=== PATIENT | female | born 1940 | race American Indian/Alaskan Native ===

== ENCOUNTER 2017-06-16 13:46 | Emergency (ER) | payer MEDICARE ==
--- NOTE | 2017-06-16 14:58 | Emergency Department Report ---
Stated Complaint: WEAKNESS AND NAUSEA Time Seen by Provider: 06/16/17 14:52 - HPI History of Present Illness: PT states her power was out. PT states she went to get food before taking her medication. PT states she thinks she passed out. PT is a poor historian - ROS Review of Systems: + weakness - generalized possible syncope - Exam Physical Exam: pt is alert poor historian no focal weakness noted MSE screening note: Focused history and physical exam performed. Due to findings the following was ordered: ekg, labs, ct ED Disposition for MSE Condition: Stable
[2017-06-16 15:33] LABS: Basophils % (Auto) 0.1 % (0.0-1.8); Hematocrit 32.7 % (30.3-42.9); Hemoglobin 10.8 gm/dl (10.1-14.3); Mean Corpuscular HGB Conc 33 % (30-34); Mean Corpuscular Hemoglobin 29 pg (28-32); Mean Corpuscular Volume 88 fl (79-97); Platelet Count 456 K/mm3 (140-440); Red Blood Count 3.71 M/mm3 (3.65-5.03); Red Cell Distribution Width 16.2 % (13.2-15.2); White Blood Count 11.6 K/mm3 (4.5-11.0)
[2017-06-16 15:50] LABS: Alanine Aminotransferase 9 units/L (7-56); Albumin 3.7 g/dL (3.9-5); Albumin/Globulin Ratio 1.2 %; Alkaline Phosphatase 67 units/L (35-129); Anion Gap 20 mmol/L; BUN/Creatinine Ratio 17.27; Blood Urea Nitrogen 19 mg/dL (7-17); Calcium 9.3 mg/dL (8.4-10.2); Carbon Dioxide 26 mmol/L (22-30); Chloride 96.7 mmol/L (98-107); Glucose 160 mg/dL (65-100); Potassium 3.4 mmol/L (3.6-5.0); Sodium 139 mmol/L (137-145); Total Protein 6.9 g/dL (6.3-8.2)
--- NOTE | 2017-06-16 15:55 | Cat Scan Report ---
CT scan of the contrast: History: Weakness. Findings: Ventricles are normal in size and midline in location. No evidence of acute ischemia, hemorrhage or mass. No extra-axial fluid collection. Normal brainstem and cerebellum. Normal sinuses and mastoid air cells. Incidentally noted 8mm diameter benign bony right frontal scalp arising from outer table.
[2017-06-16] MEDS ORDERED: NACL 0.9% 1000 ML 1,000 ML IV ONE (21:54)
--- NOTE | 2017-06-16 21:54 | Emergency Department Report ---
ED Syncope HPI - General Chief Complaint: Syncope Stated Complaint: WEAKNESS AND NAUSEA Time Seen by Provider: 06/16/17 14:52 Source: patient - History of Present Illness Initial Comments: 76-year-old very pleasant female who presents emergency Department after syncopal episode. Patient states that she was at home earlier today and took her medications without eating. She says she started to feel lightheaded when she wants try to find food. She had previously completed because her power was out. She syncopized while at the restaurant. She has felt nauseous and had a small bowel movement on herself. Currently she states she feels better. No fevers chills. Timing/Prior Episodes: no prior history, single episode today Precipitating Factors: Positive: lightheadedness Context: standing Loss of Consciousness: brief (seconds) Current Symptoms: back to normal - Related Data Allergies/Adverse Reactions: Allergies aspirin Allergy (Verified 06/16/17 14:52) Unknown ED Review of Systems ROS: Stated complaint: WEAKNESS AND NAUSEA Other details as noted in HPI Comment: All other systems reviewed and negative Constitutional: denies: chills, fever Eyes: denies: eye pain, eye discharge, vision change ENT: denies: ear pain, throat pain Respiratory: denies: cough, shortness of breath, wheezing Cardiovascular: denies: chest pain, palpitations Endocrine: no symptoms reported Gastrointestinal: other (incontinent of stool). denies: abdominal pain, nausea , diarrhea Genitourinary: denies: urgency, dysuria, discharge Musculoskeletal: denies: back pain, joint swelling, arthralgia Skin: denies: rash, lesions Neurological: denies: headache, weakness, paresthesias Psychiatric: denies: anxiety, depression Hematological/Lymphatic: denies: easy bleeding, easy bruising ED Past Medical Hx - Past Medical History Hx Hypertension: Yes Hx Asthma: Yes - Family History Family history: no significant - Social History Smoking Status: Never Smoker Substance Use Type: None ED Physical Exam - General Limitations: No Limitations General appearance: alert, in no apparent distress - Head Head exam: Present: atraumatic, normocephalic - Eye Eye exam: Present: normal appearance. Absent: scleral icterus, conjunctival injection - ENT ENT exam: Present: mucous membranes moist - Neck Neck exam: Present: normal inspection - Respiratory Respiratory exam: Present: normal lung sounds bilaterally. Absent: respiratory distress, wheezes, rales - Cardiovascular Cardiovascular Exam: Present: regular rate, normal rhythm, normal heart sounds. Absent: systolic murmur, diastolic murmur, rubs, gallop - GI/Abdominal GI/Abdominal exam: Present: soft, normal bowel sounds. Absent: distended, tenderness, guarding, rebound, rigid - Extremities Exam Extremities exam: Present: normal inspection - Back Exam Back exam: Present: normal inspection - Neurological Exam Neurological exam: Present: alert, oriented X3 - Psychiatric Psychiatric exam: Present: normal affect, normal mood - Skin Skin exam: Present: warm, dry, intact, normal color. Absent: rash ED Course Vital Signs 06/16/17 06/16/17 06/16/17 14:53 21:20 22:44 Temperature 97.4 F L 97.4 F L 98.5 F Pulse Rate 81 89 75 Respiratory 16 18 99 H Rate Blood Pressure 118/61 136/84 Blood Pressure 149/75 [Left] O2 Sat by Pulse 98 99 Oximetry ED Medical Decision Making - Lab Data Result diagrams: 06/16/17 15:06 06/16/17 15:06 Laboratory Results - last 24 hr 06/16/17 06/16/17 15:06 15:06 WBC 11.6 H RBC 3.71 Hgb 10.8 Hct 32.7 MCV 88 MCH 29 MCHC 33 RDW 16.2 H Plt Count 456 H Lymph % (Auto) 11.6 L [place] % (Auto) 6.1 Eos % (Auto) 0.0 Baso % (Auto) 0.1 Lymph # 1.3 [place] # 0.7 Eos # 0.0 Baso # 0.0 Seg Neutrophils % 82.2 H Seg Neutrophils # 9.5 H Sodium 139 Potassium 3.4 L Chloride 96.7 L Carbon Dioxide 26 Anion Gap 20 BUN 19 H Creatinine 1.1 Estimated GFR 49 BUN/Creatinine Ratio 17.27 Glucose 160 H Calcium 9.3 Total Bilirubin 0.40 AST 9 ALT 9 Alkaline Phosphatase 67 Troponin T < 0.010 Total Protein 6.9 Albumin 3.7 L Albumin/Globulin Ratio 1.2 - EKG Data -: EKG Interpreted by Me - EKG Data 06/16/17 21:55 Sinus 77 normal axis normal intervals no ST-T wave changes - Medical Decision Making 79-year-old female with a first-time syncopal episode. Patient states she felt lightheaded earlier this morning but now feels better. She denies chest pain shortness of breath. She she was incontinent of stool. She is not complaining of any pain or difficulty right now. Her EKG is unremarkable. Her labs show no clear reason for her syncopal episode. Plan a chest x-ray will repeat troponin and discussed the possibility of admission for patient. Long discussion with patient regarding the possibility of admission. She does not want to stay in the hospital. She is low risk by [place] syncope rule. I discussed reasons to return including passing out again or feeling bad. Most likely this patient has not dehydration and she will continue to push oral hydration. She is comfortable with this. Portions of this chart were dictated with dictation software. There may be dictation errors contained within this note. Critical care attestation.: If time is entered above; I have spent that time in minutes in the direct care of this critically ill patient, excluding procedure time. ED Disposition Clinical Impression: Syncope, Dehydration Disposition: DC-01 TO HOME OR SELFCARE Is pt being admited?: No Condition: Stable Instructions: Syncope (ED) Additional Instructions: Please follow-up with your regular doctor as soon as possible. Referrals: PRIMARY CARE, [Primary Care Provider] - 3-5 Days
[2017-06-16 23:41] VITALS: BP 128/69
[2017-06-17 00:03] LABS: Bilirubin,Urine NEG (Negative); Blood,Urine NEG (Negative); Ketones,Urine NEG (Negative); Leukocyte Esterase,Urine NEG (Negative); Mucus,Urine FEW /HPF; Nitrite,Urine NEG (Negative); Protein,Urine <15 mg/dL mg/dL (Negative)
--- NOTE | 2017-06-17 08:28 | XRay Report ---
PORTABLE CHEST INDICATION: Syncope. COMPARISON: None similar. FINDINGS: Portable, frontal chest radiograph demonstrates normal cardiomediastinal silhouette. Mild aortic knob calcifications. A nonspecific curvilinear thin density adjacent to the right heart border, questionably vascular. Otherwise unremarkable lungs. Thoracic spondylosis. CONCLUSION: No significant acute chest process, as described. Please also correlate clinically and with prior chest imaging, if available. Thank you for the opportunity to participate in this patient's care.
== END 2017-06-17 00:50 | disposition home or self-care (01) ==
LOC: ED 13:46
DX: R55 Syncope and collapse (principal); E86.0 Dehydration; J45.909 Unspecified asthma, uncomplicated; I10 Essential (primary) hypertension; Z88.6 Allergy status to analgesic agent
CPT/HCPCS: 36415; 70450; 71010; 80053; 81001; 84484; 85025; 93005; 93010; 99284; J7030